=== PATIENT | female | born 1970 | race Hispanic/Latino ===

== ENCOUNTER 2018-02-24 21:14 | Emergency (ER) | payer OTHER ==
[~2018-02-24] VITALS: Ht 160 cm; Wt 117.9 kg
[2018-02-24] MEDS ORDERED: HYDROMORPHONE 2MG/ML 2 MG/ML ML IM ONE (22:15)
[2018-02-24] MEDS ORDERED: ONDANSETRON HCL 4 MG ORAL DISINTEGRATING TAB PO ONE (22:45)
--- NOTE | 2018-02-24 23:17 | Diagnostic Imaging Report ---
EXAM: WRIST COMPLETE LEFT, AP, lateral and oblique INDICATION: Fall, left wrist pain COMPARISON: None FINDINGS: BONES: Acute, mildly displaced, intra-articular fracture through the distal radius. Acute mildly displaced fracture of the ulnar styloid process. JOINTS: No malalignment. SOFT TISSUES: Soft tissue swelling of the wrist. IMPRESSION: Acute, mildly displaced, intra-articular fracture through the distal radius. Acute mildly displaced fracture of the ulnar styloid process. Signed by: Dr. Shari Orozco M.D. on 02/24/2018 11:14 PM
== END 2018-02-25 00:22 | disposition home or self-care (01) ==
LOC: ER 21:14
DX: S52.355A Nondisplaced comminuted fracture of shaft of radius, left arm, initial encounter for closed fracture (principal); S52.612A Displaced fracture of left ulna styloid process, initial encounter for closed fracture; M54.2 Cervicalgia; S16.1XXA Strain of muscle, fascia and tendon at neck level, initial encounter; W01.0XXA Fall on same level from slipping, tripping and stumbling without subsequent striking against object, initial encounter; Y99.0 Civilian activity done for income or pay; E07.9 Disorder of thyroid, unspecified
CPT/HCPCS: 29125; 73110; 96372; 99284; J1170; Q0162

== ENCOUNTER → 2020-10-16 | Day surgery (SDC) | payer OTHER ==
[~2020-10-16] MED LIST: FENTANYL CITRATE/PF 100MCG/2 ML INJ ONE; HYOSCYAMINE SULFATE 0.5 MG/ML INJ ONE; KETAMINE HCL INJ 50 MG/ML 10 ML VIAL ONE; LEVOTHYROXINE100 MC1 PO; MIDAZOLAM HCL 2 MG/2 ML VIAL ONE; PROPOFOL IV EMULSION 10 MG/ML 20 ML VIAL ONE
[2020-10-16 12:20] VITALS: BP 128/75
== END | disposition home or self-care (01) ==
LOC: OR 08:05
PROVIDERS: ATTEND Internal Medicine Gastroenterology
DX: Z12.11 Encounter for screening for malignant neoplasm of colon (principal); K63.5 Polyp of colon; K29.70 Gastritis, unspecified, without bleeding; K20.90 Esophagitis, unspecified without bleeding; K44.9 Diaphragmatic hernia without obstruction or gangrene; B96.81 Helicobacter pylori [H. pylori] as the cause of diseases classified elsewhere; K57.30 Diverticulosis of large intestine without perforation or abscess without bleeding; K64.8 Other hemorrhoids; Z01.810 Encounter for preprocedural cardiovascular examination; Z01.812 Encounter for preprocedural laboratory examination; Z20.822 Contact with and (suspected) exposure to COVID-19; Z80.0 Family history of malignant neoplasm of digestive organs
CPT/HCPCS: 43239; 45378; 45385; 93005; J1980; J2250; J3010; U0002